=== PATIENT | female | born 1970 | race Hispanic/Latino ===

== ENCOUNTER 2021-03-04 09:28 | Day surgery (SDC) | payer BC ==
[~2021-03-04 09:28] MED LIST: BUPIVACAINE 0.25% PF 10 ML VIAL ONE; FENTANYL CITR 100 MCG/2 ML ONE; LIDOCAINE 1% MPF 5 ML VIAL ONE; MIDAZOLAM HCL 2 MG/2 ML INJ ONE; propofoL 200 MG/20 ML VIAL IV ONE
[2021-03-04 10:02] LABS: Urine Appearance CLEAR (Clear); Urine Bilirubin NEGATIVE (Negative); Urine Blood TRACE (Negative); Urine Color YELLOW (Yellow); Urine Glucose NEGATIVE (Negative); Urine Protein NEGATIVE (Negative); Urine pH 5.5 (5.0-7.0)
[2021-03-04 10:03] LABS: Urine Microscopic Reflex ORDER UMIC
[2021-03-04] MEDS ORDERED: Ringers Lactate 1,000 ML IV ONE ×2 (10:05→15:20)
[2021-03-04 10:16] LABS: Absolute Lymphocytes (CBC) 2.6 K/uL (0.7-4.9); Hematocrit 43.1 % (36.0-45.0); Lymphocytes % 29.6 % (15.3-44.8); MPV 8.4 fL (7.6-11.3); RBC Red Blood Cell Count 4.87 M/uL (3.86-4.86)
[2021-03-04] MEDS ORDERED: SCOPOLAMINE HYDROBROMIDE PATCH TD ONE (10:20)
[2021-03-04 10:21] LABS: Urine Bacteria <20 /HPF (<20); Urine Mucus MOD /HPF (NONE SEEN); Urine RBC <5 /HPF (NONE SEEN)
[2021-03-04] MEDS ORDERED: propofoL 200 MG/20 ML VIAL IV ONE (12:55)
[2021-03-04] MEDS ORDERED: MIDAZOLAM HCL 2 MG/2 ML INJ ONE (12:56)
[2021-03-04] MEDS ORDERED: LIDOCAINE 2% MPF 5 ML VIAL ONE (12:56)
[2021-03-04] MEDS ORDERED: FENTANYL CITR 100 MCG/2 ML ONE (12:56)
[2021-03-04] MEDS ORDERED: dexAMETHasone 10 MG/ML VIAL ONE (12:56)
[2021-03-04] MEDS ORDERED: ROCURONIUM 50 MG/5 ML VIAL IV ONE (12:56)
[2021-03-04] MEDS ORDERED: KETOROLAC 30 MG/ML INJ ONE ×2 (12:56→15:23)
[2021-03-04] MEDS ORDERED: ONDANSETRON 4 MG/2 ML VIAL ONE (12:57)
[2021-03-04] MEDS ORDERED: ACETAMINOPHEN 500 MG TAB ONE (12:59)
[2021-03-04] MEDS ORDERED: CEFAZOLIN/SWI 2gm 2 GM/20 ML SYR ONE (12:59)
[2021-03-04] MEDS ORDERED: CELECOXIB 100 MG CAPSULE ONE (12:59)
[2021-03-04] MEDS ORDERED: NA CHLORIDE 0.9% 50 ML ONE (13:17)
[2021-03-04] MEDS ORDERED: VASOPRESSIN 20 UNIT/ML VIAL ONE (13:17)
[2021-03-04] MEDS ORDERED: VECURONIUM 10 MG/VIAL IV ONE (14:06)
[2021-03-04] MEDS ORDERED: NS 0.9% VIAL 10 ML ONE (14:06)
[2021-03-04] MEDS ORDERED: CEFAZOLIN SODIUM 1 GM/VIAL ONE (15:03)
[2021-03-04] MEDS ORDERED: IBUPROFEN 200 MG TAB PO PRN (16:01)
[2021-03-04] MEDS ORDERED: HYDROCODONE/APAP 5/325 MG TAB PO PRN (16:01)
[2021-03-04] MEDS: HYDROMORPHONE HCL 1 MG/ML INJ ONE ×4 (16:02→16:20)
--- NOTE | 2021-03-04 16:09 | P.BOP ---
Preoperative diagnosis: AURA, Pelvic pain Postoperative diagnosis: AURA, right hydrosalpinx, left ovarian mass, omental adhesions Primary procedure: Lapsc BSO, pelvic washings, EDUARDO 30min,TVT-O cystoscopy Secondary procedure: endo rx Shuttle Final Inspector: Parvin Melton Estimated blood loss: min Specimen: bilateral tubes and ovaries, pelvic washings, endo Findings: endo left wall, omental adhesions, right hydrosalpinx, left ovarian mass Anesthesia: General Complications: None Drain(s): Urinary catheter Implants: TVT-O Fluids & blood products: 1200 LR UO 150 Transferred to: Recovery Room Condition: Good
[2021-03-04] MEDS ORDERED: HYDROCODONE/APAP 5/325 MG TAB ONE (17:11)
[2021-03-04 17:38] VITALS: BP 113/62; TEMP 97.3; O2SAT 98
[2021-03-04] MEDS ORDERED: [UNRECOGNIZED DRUG - OTHER] PO SCH (21:00)
[2021-03-04] MEDS ORDERED: DEXTROAMPHETAMINE PO SCH (21:00)
[2021-03-04] MEDS ORDERED: AMPHETAMINE PO SCH (21:00)
[2021-03-05] MEDS ORDERED: ASCORBIC ACID 500 MG TABLET PO SCH (09:00)
[2021-03-05] MEDS ORDERED: LEVOTHYROXINE SOD 0.05 MG TABLET PO SCH (09:00)
[2021-03-05] MEDS ORDERED: HOME MED 1 EA UNK (Multivitamin [Multivitamin] Tablet) PO SCH (09:00)
[2021-03-05] MEDS ORDERED: NEBIVOLOL HCL 5 MG TAB PO SCH (09:00)
[2021-03-05] MEDS ORDERED: VALACYCLOVIR 500 MG TAB PO SCH (09:00)
[2021-03-05] MEDS ORDERED: HOME MED 1 EA UNK (Hydrochlorothiazide [Hydrochlorothiazide] 12.5 MG Tablet) PO SCH (09:00)
--- NOTE | 2021-03-05 12:47 | OP ---
Date of Procedure: 03/04/2021 Surgeon: Emiliana Oconnell MD Certified Nuclear Medicine Technologist: Parvin Olson. Preoperative Diagnoses: Stress urinary incontinence, pelvic pain. Postoperative Diagnoses: Stress urinary incontinence, right hydrosalpinx, left ovarian mass, omental adhesions, and endometriosis. Procedures Performed: Laparoscopy; pelvic washings; bilateral salpingo-oophorectomy; lysis of adhesi ons, which took at least 50% of this case to even enter and get visualization; omental and sigmoid co andry adhesions were taken down; TVT-O cystoscopy; and endometriosis excision. Anesthesia: General endotracheal. Estimated Blood Loss: Minimal. Specimens: Bilateral tubes and ovaries, pelvic washings, endometriosis. Complications: No complications. Drains: Griffin catheter. Implants: TVT-O. Fluids: 1200. Urine Output: 150. Condition: Transferred to the recovery room in stable condition. Findings: Endometriosis found on the left lateral wall close to the uterosacral ligament; then oment al adhesions were seen in the periumbilical area, left upper quadrant, lower midline, and right lower quadrant; cecal adhesions in the right lower quadrant were seen. Sigmoid adhesions on the left wall were taken down as well. Then, there was a large right hydrosalpinx. The ovary on the right side a ppeared to be unremarkable. The left ovary, however, seemed to have a solid mass. The tube appeared to be normal. Both ureteric courses were unremarkable without any anatomical distortion. On visual ization of the bladder, there was a small area of raised transitional cell epithelium suspicious for a possible abnormal lesion. She will be referred to urologist for this. Indications: The patient is a 50-year-old female, presented with pelvic pain and stress urinary inco ntinence, also with severe overactive bladder. She was diagnosed with overactive bladder, discussed all different options, wanted to proceed with the AURA treatment with sling at the time of the laparos copy and BSO. This was done for her pelvic pain. So, on transvaginal ultrasound, she was found to h ave bilateral adnexal masses 4 cm on the right and 3 cm on the left that was solid. So, we discussed about the importance of this, baseline CA-125 was normal. She was consented and brought to the OR. Procedure In Detail: Ancef 2 g was given prior to the surgery. She was taken back to the OR, placed in supine fashion on the operating table. General anesthesia was given. She was placed in a dorsal lithotomy position using Hilario stirrups. Abdomen, vulva, vagina, and perineum were prepped and drap ed in a sterile fashion. 1 cm infraumbilical incision was made with scalpel using the open laparoscopy technique. Fascia was incised, tagged with 0 Vicryl sutures. Peritoneum was entered sharply. S-retractors were placed and Fabienne introduced. Left upper quadrant was visualized with free of omental adhesions. The left low er quadrant 5 port was placed under direct vision. Once the port was placed here, a left upper quadr ant port was placed and omental adhesions were taken down with the help of the LigaSure in the perium bilical, midline lower umbilical, right lower quadrant, left upper quadrant. Then, a 5 suprapubic po rt was placed. Sigmoid adhesions were also taken down sharply. Then, the peritoneum lateral to the ovary was opened up. The medial peritoneal incision was made between the ureter and the IP. IP was taken down with the help of the LigaSure and the ovary dissected and from the round ligamen t and then entirely resected. Similarly on the opposite side, similar dissection was performed and t he tube and ovary were removed. Both were placed after good washing and making sure that there was h emostasis on an Endo Catch bag. Incision of the supraumbilical site was extended to 3 cm and the phan yps removed as the specimens. Pelvic washings were done before the surgery was started. The fascia was closed with a continuous running fashion. All trocars were removed under direct visio n. All port sites closed with the help of chromic sutures. Sling was done was picked up with 2 Allis clamps, injected with dilute vasopressin. 1 cm incision was made in the midline and dissection carried to horizontal vertical planes to t he obturators space on each side and the tract expanded by opening with scissors to let the mesh lay flat. needle passes were taken inferior pubic ramus coming out at the point ma rked at the level of the external meatus, 2 cm lateral to the avoiding the adductor longus tendon. Similar pass on both sides. The antibiotic irrigation was done after the . The sheaths were removed. Mesh was tensioned with placing Allis that would keep it flat in the center. Tension was done appropriately. Then, after antibiotic irrigation, closed with the help of 3-0 Vicry l in continuous running fashion and Dermabond on the skin incisions. Cystoscopy was performed. Ther e was a lesion above the level of the trigone close to the right ureteric orifice. This was above th e trigone, so it was not a squamous metaplastic lesion and some transitional cell epithelial. The cory I want to make sure that this is going to be referred to Urology. No evidence of perforation or foreign body. Bladder was drained. Griffin was placed. The patient was recovered from anesthesia an d taken to PACU in stable condition. Instrument, needle, and sponge counts were correct at the end o f the case. PREMA/CECIL Voice ID: [id number] Report ID: [id number]
== END 2021-03-04 19:10 | disposition home or self-care (01) ==
LOC: OR 09:28
PROVIDERS: ATTEND Obstetrics & Gynecology
PROC: 0UT74ZZ Resection of Bilateral Fallopian Tubes, Percutaneous Endoscopic Approach (ICD-10-PCS; 2021-03-04)
PROC: 0TSD0ZZ Reposition Urethra, Open Approach (ICD-10-PCS; 2021-03-04)
PROC: 0UB44ZZ Excision of Uterine Supporting Structure, Percutaneous Endoscopic Approach (ICD-10-PCS; 2021-03-04)
PROC: 0DNU4ZZ Release Omentum, Percutaneous Endoscopic Approach (ICD-10-PCS; 2021-03-04)
PROC: 0UT24ZZ Resection of Bilateral Ovaries, Percutaneous Endoscopic Approach (ICD-10-PCS; principal; 2021-03-04 11:30)
DX: N39.3 Stress incontinence (female) (male) (principal); R10.2 Pelvic and perineal pain; R19.09 Other intra-abdominal and pelvic swelling, mass and lump; N32.81 Overactive bladder
CPT/HCPCS: 85025; 36415; 86900; 88108; 86850; 86901; 88305 ×2; 58661; 57288; 58662; 49329; J2704; J2250; J3010; J1100; J1170 ×2; J0690 ×2; J7120 ×2; J2405; 81003; 81015

== ENCOUNTER 2021-04-22 09:26 | Day surgery (SDC) | payer BC ==
[2021-04-17 09:59] LABS: Absolute Lymphocytes (CBC) 2.9 K/uL (0.7-4.9); Hematocrit 40.3 % (36.0-45.0); Lymphocytes % 35.1 % (15.3-44.8); RBC Red Blood Cell Count 4.63 M/uL (3.86-4.86)
[2021-04-17 10:01] LABS: Protime INR 0.98
[2021-04-17 10:19] LABS: Potassium 3.7 mmol/L (3.5-5.1)
[2021-04-22] MEDS ORDERED: Ringers Lactate 1,000 ML IV ONE (09:36)
[2021-04-22] MEDS ORDERED: CEFAZOLIN/SWI 2gm 2 GM/20 ML SYR ONE (09:50)
[2021-04-22] MEDS ORDERED: FENTANYL CITR 100 MCG/2 ML ONE (12:40)
[2021-04-22] MEDS ORDERED: LIDOCAINE 1% MPF 5 ML VIAL ONE (12:40)
[2021-04-22] MEDS ORDERED: MIDAZOLAM HCL 2 MG/2 ML INJ ONE (12:40)
[2021-04-22] MEDS ORDERED: propofoL 200 MG/20 ML VIAL IV ONE ×2 (12:40→13:13)
[2021-04-22] MEDS ORDERED: KETOROLAC 30 MG/ML INJ ONE (13:08)
[2021-04-22] MEDS ORDERED: dexAMETHasone 10 MG/ML VIAL ONE (13:08)
[2021-04-22] MEDS ORDERED: ONDANSETRON 4 MG/2 ML VIAL ONE (13:12)
[2021-04-22] MEDS: MORPHINE 4 MG/ML SYR ONE ×2 (13:39→13:52)
[2021-04-22] MEDS ORDERED: PHENAZOPYRIDINE 100MG TAB PO ONE (13:40)
[2021-04-22] MEDS ORDERED: CODEINE 30MG/APAP 300MG TAB PO PRN (13:40)
[2021-04-22] MEDS ORDERED: PROMETHAZINE INJ 25 MG/ML AMP ONE (13:55)
[2021-04-22 14:31] VITALS: BP 111/54; TEMP 96; O2SAT 97
--- NOTE | 2021-04-24 09:03 | OP ---
Surgeon: TAMMY ALBERTO Preoperative Diagnosis: Bladder lesion. Postoperative Diagnosis: Bladder lesion. Principal Procedure: Cystoscopy with bladder biopsies and fulguration. Indication For Procedure: Ms. Batista is a 50-year-old woman who presented to the Urology Clinic, refe rred by Dr. Oconnell with evidence of a bladder lesion observed on a cystoscopy she performed as an o utpatient. I counseled the patient that typically I would perform an outpatient cystoscopy, but coty use her insurance company would refuse to pay for the cystoscopy being performed on her initial visit , she would have to come back for a second visit to complete the cystoscopy. Alternatively, I explai reji we could proceed for operative evaluation anticipating the lesions present and manage it expectan tly. She elected the latter approach and presents today for that evaluation. Procedure In Detail: The patient was consented in the preoperative holding area before being transfe rred to the operative suite where general anesthesia was induced. She was given Ancef 2 g IV antimic robial prophylaxis, and Pneumoboots were placed for DVT prophylaxis. She was placed in the lithotomy position, padded and secured to the table appropriately. Her genitalia were prepped using Hibiclens and draped in standard fashion. The case was begun using a 22-[place] rigid cystoscope to traverse t he urethra and into the bladder with ease. The bladder was surveyed in its entirety, and there were no overly concerning papillary mucosal lesions, foreign bodies, or stones. The ureteral orifices wer e orthotopic in location, and the urine was clear. I did observe near the left ureteral orifice and just posterior to the trigone, a slight area of mildly irregular mucosa with pigment similar to the s urrounding mucosa, but micropapillary in nature. 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 I then fulgurated the lesions minimally in order to cease any oozing of blood. Images were taken for the patient's perspective and information and her bladder was then decompressed. She was then a wakened from general anesthesia after being taken out of the lithotomy position. She was transferred to a stretcher and then transferred to the recovery room in good condition. Complications: None. Discharge Disposition: We will follow up the results of the pathology and I would simply recommend s he contact the office to be informed about those results in about 1-2 weeks' time, anticipating the r esults to be benign. If the results are not benign, we will schedule definitive followup to discuss next steps. HANNA/CECIL Voice ID: [id number] Report ID: [id number]
== END 2021-04-22 15:00 | disposition home or self-care (01) ==
LOC: OR 09:26
PROVIDERS: ATTEND Urology
PROC: 0TBB8ZX Excision of Bladder, Via Natural or Artificial Opening Endoscopic, Diagnostic (ICD-10-PCS; principal; 2021-04-22 11:15)
DX: N32.89 Other specified disorders of bladder (principal)
CPT/HCPCS: 85025; 87086; 80048; 36415; 85610; 88305; 52204; J2704 ×2; J2550; J2250; J3010; J1100; J0690; J7120; J2405; 87088